=== PATIENT | female | born 1995 | race African-American/Black ===

== ENCOUNTER 2023-02-07 17:53 | Emergency (ER) | payer OTHER ==
[~2023-02-07] VITALS: Ht 162.6 cm; Wt 65.3 kg
[2023-02-07 18:49] VITALS: BP 101/70; PULSE 88; RESP 18; TEMP 98; O2SAT 98
--- NOTE | 2023-02-07 18:57 | NUR ---
Note undone in EDM - 02/07/23 at 1914 by [email or web address] PATIENT PRESENTS TO ED WITH RIGHT LOWER JAW PAIN. PAIN STARTED LAST NIGHT. ABCESSES HAS FORMED. PT IS 6 MONTHS PT STATES DENIES N/V/D; SKIN IS PINK/WARM/DRY; AAOX4 WITH EVEN AND STEADY GAIT; LUNGS CLEAR BL; HR EVEN AND REGULAR; PT DENIES ANY FEVER, CP, SOB, OR COUGH AT THIS TIME; PATIENT STATES PAIN OF 6/10 AT THIS TIME; VSS; PATIENT POSITIONED FOR COMFORT; HOB ELEVATED; BEDRAILS UP X2; BED DOWN. ER MD MADE AWARE OF PT STATUS.
[2023-02-07] MEDS ORDERED: PENI500T20 PO (19:08)
--- NOTE | 2023-02-07 19:10 | NUR ---
PROVIDER AT BEDSIDE.
--- NOTE | 2023-02-07 19:15 | NUR ---
PATIENT PRESENTS TO ED WITH LEFT LOWER JAW PAIN. PAIN STARTED LAST NIGHT. ABCESSES HAS FORMED. PT IS 6 MONTHS PT STATES DENIES N/V/D; SKIN IS PINK/WARM/DRY; AAOX4 WITH EVEN AND STEADY GAIT; LUNGS CLEAR BL; HR EVEN AND REGULAR; PT DENIES ANY FEVER, CP, SOB, OR COUGH AT THIS TIME; PATIENT STATES PAIN OF 8/10 AT THIS TIME; VSS; PATIENT POSITIONED FOR COMFORT; HOB ELEVATED; BEDRAILS UP X2; BED DOWN. ER MD MADE AWARE OF PT STATUS.
[2023-02-07 19:17] VITALS: O2SAT 98
[2023-02-07 19:20] VITALS: BP 101/70; PULSE 88; RESP 18; TEMP 98; O2SAT 98
--- NOTE | 2023-02-07 19:22 | NUR ---
Patient discharged with v/s stable. Written and verbal after care instructions given and explained. Patient verbalized understanding. Ambulatory with steady gait. All questions addressed prior to discharge. Advised to follow up with PMD.
== END 2023-02-07 19:22 | disposition home or self-care (01) ==
LOC: MED 17:53
DX: O98.812 Other maternal infectious and parasitic diseases complicating pregnancy, second trimester (principal); K04.7 Periapical abscess without sinus; Z3A.20 20 weeks gestation of pregnancy; Z79.899 Other long term (current) drug therapy
CPT/HCPCS: 99281